=== PATIENT | male | born 1960 | race Caucasian/White ===

== ENCOUNTER 2018-09-11 00:31 | Outpatient (CLI) | payer OTHER, SELFPAY ==
--- NOTE | 2018-09-11 07:01 | MERGEMPI_ITS ---
*[facility]* *[facility]* [address] [place] [address] Myocardial Perfusion Imaging - SPECT Jhon protocol Date of study: 09/11/2018 *PATIENT PRESENTATION* Height: 182.9cm (72in) Blood Pressure: Weight: 102.3kg (225lb) BSA: 2.3m^2 Referring physician: Armen Titus Ordering physician: Pato Calvo Impressions: - Normal study after maximal exercise. - Low risk of cardiac events. Summary: 1. Myocardial perfusion imaging: No myocardial perfusion defects noted. 2. The calculated left ventricular ejection fraction after stress: 55%. LV global systolic function is normal. No left ventricular regional motion abnormality. 3. Stress ECG conclusions: The stress ECG is negative. The sensitivity of this test is limited by significant motion artifact. 4. Stress: There is resting hypertension with an appropriate response to stress. The patient experienced no chest pain during stress. Exercise capacity is above normal for age. 5. Treadmill exercise testing was performed using the Jhon protocol. The patient exercised for 13 min, to protocol stage 4, to a maximal work rate of 14.2mets. Exercise was terminated due to achievement of target heart rate. Indication: R07.9, Appropriate Use Criteria: M (May be appropriate). 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 PT HAS ONE CARDIAC STENT AND A HISTORY OF ATRIAL FIBRILLATION. HE REPORTS CHEST PAINS OVER THIS LAST 6 MONTHS IT ONLY OCCURS AT REST. PT DESCRIBES IT A MUSCULAR SORENESS AND TENDERNESS WITH PALPATION OVER THE CENTER OF HIS CHEST HE STATES IT CAN RADIATE TO THE RIGHT CHEST. LAST EPISODE WAS YESTERDAY IT LASTED ABOUT 1 HOUR. HE CAN REPRODUCE WITH PALPATION. Risk factors: Family history of coronary artery disease. Hypertension. Dyslipidemia. Cholesterol: 221mg/dl. HDL: 52mg/dl. LDL: 57mg/dl. Triglycerides: 52mg/dl. ALLERGIES: NO KNOWN DRUG ALLERGIES. MEDICATIONS: ZYRTEC PRN. ASPIRIN 81 MG DAILY. ATORVASTATIN 80 MG Q HS. PANTOPRAZOLE 20 MG DAILY. LISINOPRIL 10 MG DAILY. HYDROCHLOROTHIAZIDE 12.5 MG DAILY. Imaging Technique: Protocol: Jhon protocol. Acquisition: Gated SPECT; 1 day - rest/stress. The patient was imaged in the supine position. Attenuation correction used. Isotope administration: - Rest. Tc[99m]-sestamibi. Dose: 11.1mCi. Injection time: 09:00 AM. Injection to stress time: 00:45. - Stress. Tc[99m]-sestamibi. Dose: 35mCi. Injection time: 12:30 PM. 1-2 min before end of exercise Baseline ECG: SINUS BRADYCARDIA. HR 54 BPM. Sinus bradycardia. Stress protocol: + +---+ + !Stage !HR !BP (mmHg) ! + +---+ + !Baseline supine !54 !160/100 (120)! + +---+ + !Baseline standing !55 !148/90 (109) ! + +---+ + !Stage I; 1.7mph, 10degrees; 3 min !95 !152/86 (108) ! + +---+ + !Stage II; 2.5mph, 12degrees; 3 min !118!168/92 (117) ! + +---+ + !Stage III; 3.4mph, 14degrees; 3 min!135!182/98 (126) ! + +---+ + !Peak stress !164! ! + +---+ + !Immediate post stress !105!220/70 (120) ! + +---+ + !Recovery; 3 min !94 !180/90 (120) ! + +---+ + !Recovery; 6 min !93 !158/90 (113) ! + +---+ + * Stress results: Maximal heart rate during stress was 164bpm (101% of maximal predicted heart rate). The maximal predicted heart rate was 163bpm. There is resting hypertension with an appropriate response to stress. The rate-pressure product for the peak heart rate and blood pressure was 82678qb Hg/min. The patient experienced no chest pain during stress. Exercise capacity is above normal for age. Stress ECG: TREADMILL PORTION OF STRESS TEST ENDED IN 13 MINUTES & 1 SECOND DUE TO REACHING 100% OF TARGET HEART RATE. NORMAL HEART RATE AND BLOOD PRESSURE RESPONSE TO EXERCISE MAX HR = 164 % OF TARGET = 100 OCCASIONAL PVC. VENTRICULAR COUPLET SEEN X1. APPROXIMATE METS ACHIEVED = 14.16 NO [address]GINA. NO SIGNIFICANT ST SEGMENT CHANGES. ABOVE AVERAGE FUNCTIONAL CAPACITY FOR EXERCISE. The stress ECG is negative. The sensitivity of this test is limited by significant motion artifact. Myocardial perfusion: Imaging information: gated. The image quality was good. Left ventricular size is normal. No myocardial perfusion defects noted. Ventricular Function (Wall Motion): The calculated left ventricular ejection fraction after stress: 55%. LV global systolic function is normal. No left ventricular regional motion abnormality. Study data: Armen Titus MD supervised and was readily available during the procedure. This study was interpreted by [facility]. Study status: Routine. Consent: The risks, benefits, and alternatives to the procedure were explained to the patient and informed consent was obtained. Procedure: Initial setup. A baseline ECG was recorded. Surface ECG leads and manual cuff blood pressure measurements were monitored. Heart sounds: Normal. Lung sounds: Normal. Treadmill exercise testing was performed using the Jhon protocol. The patient exercised for 13 min, to protocol stage 4, to a maximal work rate of 14.2mets. Exercise was terminated due to achievement of target heart rate. Study completion: All catheters inserted during the procedure were removed. The patient tolerated the procedure well and was discharged from the lab. Discharge: The patient left the laboratory in stable condition. Birthdate: Patient birthdate: 1960. Sex: Gender: male. Study date: Study date: 09/11/2018. Study time: 00:01 AM. Signature Documentation: - The imaging portion of this study was interpreted by [employer] Armen Titus MD. - The Stress ECG portion of this study was interpreted by Armen Titus MD. Electronically signed by Armen Titus 09/11/2018 13:58
== END 2018-09-11 00:51 ==
PROVIDERS: PCP Emergency Medicine; Visit Provider Emergency Medicine
DX: I48.91 Unspecified atrial fibrillation (principal); R07.9 Chest pain, unspecified; Z95.5 Presence of coronary angioplasty implant and graft; E78.5 Hyperlipidemia, unspecified; Z02.79 Encounter for issue of other medical certificate; Z82.49 Family history of ischemic heart disease and other diseases of the circulatory system
CPT/HCPCS: 78452; 93017

== ENCOUNTER 2018-09-24 15:09 | Outpatient (CLI) | payer OTHER, SELFPAY ==
--- NOTE | 2018-09-24 15:00 | DI.RAD_ITS ---
SYMPTOMS/DIAGNOSIS: RIGHT KNEE PAIN, M25.561, LEFT KNEE PAIN, M25.562 RIGHT KNEE: There is mild narrowing of the medial tibiofemoral joint space. There is minimal periarticular spurring. No joint effusion is seen. IMPRESSION: Mild degenerative changes. LEFT KNEE: There is mild narrowing of the medial tibiofemoral joint. There is minimal periarticular spurring. No joint effusion is seen. IMPRESSION: Mild degenerative changes.
[2018-09-25 12:57] LABS: PSA, Screening 1.3 ng/ml (0-3.5)
== END 2018-09-24 15:29 ==
PROVIDERS: PCP Emergency Medicine; Visit Provider Emergency Medicine
DX: M25.561 Pain in right knee; M25.562 Pain in left knee; M17.0 Bilateral primary osteoarthritis of knee
CPT/HCPCS: 36415; 73562; 84153

== ENCOUNTER 2019-09-30 22:50 | Outpatient (REF) | payer OTHER, SELFPAY ==
[2019-09-30 20:02] LABS: Anion Gap 8.3 mmol/L (3-11); BUN 17 mg/dL (7-18); CO2 28.7 mmol/L (21.0-32.0); CREATININE 1.23 mg/dL (0.70-1.30); Calcium 8.8 mg/dL (8.5-10.1); Chloride 102 mmol/L (98-107); Glucose 114 mg/dL (74-106); Potassium 3.6 mmol/L (3.5-5.1); Sodium 139 mmol/L (136-145)
== END 2019-09-30 23:10 ==
LOC: LBN 22:50
PROVIDERS: PCP Emergency Medicine; Visit Provider Emergency Medicine
DX: I10 Essential (primary) hypertension (principal)
CPT/HCPCS: 80048

== ENCOUNTER 2020-10-11 01:17 | Outpatient (CLI) | payer OTHER, SELFPAY ==
--- NOTE | 2020-10-11 06:30 | DI.RAD_ITS ---
Exam(s) XR KNEE LT 3V AP,LAT,JASMIN EXAM: XR KNEE LT 3V AP,LAT,JASMIN CLINICAL HISTORY: TRAUMA,FELL, W10.8XXA. TECHNIQUE: 2D digital imaging was performed. COMPARISON: No exams were available for comparison FINDINGS: No evidence of fracture but there does appear to be small amount of increased joint fluid. There is some degenerative narrowing of the medial compartment without obvious osteophytes. Lateral compartme nt appears unremarkable as does the patellofemoral compartment. Bone density is normal. No osseous lesions. IMPRESSION: Degenerative osteoarthritis with narrowing of the medial compartment as seen on the standing view. DATA REPOSITORY: RADIATION DOSE DELIVERED:
--- NOTE | 2020-10-11 08:00 | ETT_ITS ---
APPROVED REPORT Exam: Exercise Treadmill Patient Location: Out-Patient Room/Bed: Stress Nurse: Kyra Willis RN Ordering Provider:EMIL BELL, Contact Number: [phone] BMI: 29.15 Baseline Rhythm: Sinus Bradycardia Indications: CORONARY ARTERY DISEASE Medical History Medical History: CAD, GERD, HTN, HLD Cardiac Medications: Aspirin, Atorvastatin, HCTZ, Lisinopril, Pantoprazole Allergies: No known drug allergies Cardiac Risk Factors: FHX of CAD, CVD, HTN, Hyperlipidemia Previous Cardiac Procedures: PCI w/ JLUIS (2015) Pretest Chest Pain Characteristics: No chest pain Exercise History: Sedentary Physical Disabilities: None. Lung Sounds: Clear to auscultation Heart Sounds: Regular Stress Test Details Test: Exercise stress testing was performed using a Jhon protocol. Rest Stress HR Resting HR Supine: 58 bpm Max Heart Rate (APMHR): 161 bpm Resting HR Standin bpm Target HR (85% APMHR): 136 bpm Max HR Achieved: 179 bpm % of APMHR: 111 Recovery HR: 96 bpm HR response to stress: Normal HR response to stress BP Resting BP Supine: 124/78 mmHg Resting BP Standin/80 mmHg Max BP: 180/72 mmHg Recovery BP: 130/76 mmHg BP response to stress: Normal blood pressure response to stress. ECG Resting ECG: Sinus Bradycardia Ectopy: None Stress ECG: Sinus Tachycardia ST Change: No significant ST segment changes noted Arrhythmia: occasional PVCs, couplet Recovery ECG: Sinus Rhythm Recovery ST Change: No significant ST segment changes noted Recovery Arrhythmia: occasional PACs Clinical Reason for Termination: Fatigue Stress Symptoms: General Fatigue Exercise duration: 13 min38 sec Highest Stage Reached: Stage 5: 5.0 mph at 18% grade. Exercise capacity: 14.61 METs Flowers Treadmill Score: 12 Rate Pressure Product: [id number] Stress ECG Conclusion 1. The resting electrocardiogram was normal 2. The patient exercised on the Jhon protocol and completed a workload of 14.61 METS, reaching stage V 3. The test was stopped due to fatigue 4. Normal heart rate and blood pressure response to exercise. The patient achieved greater than 100% of predicted heart rate for age 5. There was no electrocardiographic evidence of myocardial ischemia 6. There were no significant dysrhythmias Flowers Treadmill Score is 12 which is Low risk. Stress Test Summary STAGE Time (mins) Speed (mph) Grade (%) HR BP SYMPTOMS METS Supine 58 124/78 Standing 63 122/80 1 3 1.7 10 98 124/76 4.6 2 6 2.5 12 115 132/74 7 3 9 3.4 14 129 138/70 10.2 4 12 4.2 16 154 12.9 1 min recovery 143 180/70 3 min recovery 100 154/70 6 min recovery 96 130/76
== END 2020-10-11 01:37 ==
PROVIDERS: PCP Emergency Medicine; Visit Provider Emergency Medicine
DX: I25.118 Atherosclerotic heart disease of native coronary artery with other forms of angina pectoris (principal); W10.8XXA Fall (on) (from) other stairs and steps, initial encounter; M25.562 Pain in left knee; I10 Essential (primary) hypertension; E78.5 Hyperlipidemia, unspecified; Z82.49 Family history of ischemic heart disease and other diseases of the circulatory system
CPT/HCPCS: 73562; 93017

== ENCOUNTER 2020-10-24 14:20 | Emergency (ER) | payer OTHER, SELFPAY ==
[2020-10-24 14:28] VITALS: BP 130/91; PULSE 76; RESP 17; TEMP 36.8; O2SAT 98
--- NOTE | 2020-10-24 14:43 | ED.GENADUL_ITS ---
Discharge Plan Disposition Patient Disposition: HOME Condition: Improving Discharge Details Clinical Impression: Arthritis of knee, left Primary Care Provider: Pato Calvo ED Provider: Ramon Peguero Home Meds and New Rx's Prescriptions: Continued omeprazole 20 mg tablet,delayed release (DR/EC) 20 mg PO DAILY Qty: 90 RF: 3 rosuvastatin 20 mg tablet 20 mg PO DAILY Qty: 90 RF: 3 Slow-Mag 71.5 mg tablet,delayed release (DR/EC) 71.5 mg PO DAILY Qty: 90 RF: 3 potassium chloride 10 mEq tablet extended release 10 meq PO DAILY Qty: 90 RF: 3 Zyrtec 10 MG capsule 1 mg PO DAILY Qty: 90 RF: 4 aspirin 81 MG tablet,chewable 81 mg PO DAILY RF: 0 lisinopril 10 mg tablet 10 mg PO DAILY Qty: 90 RF: 4 hydrochlorothiazide 12.5 mg tablet 12.5 mg PO DAILY Qty: 90 RF: 4 Discharge Instructions Additional Instructions: Please call the orthopedic office at [phone] for an appointment time. I discussed your case with Dr. Roque this evening. May remove Brennen bandage when at home. Elevate leg above the level of the heart to reduce swelling. May apply ice to area to reduce discomfort. May use the provided hydrocodone for breakthrough pain. This contains Tylenol and you should not use additional Tylenol. You may continue the use of Aleve as you have previously. Return to the emergency department for any acute concerns. Medical Decision Making 60-year-old male with worsening left knee pain since fall in September. He has a h istory of bilateral knee osteoarthritis, with primary joint space narrowing of the medial compartments. He previously has been seen by Dr. Roque. Now here with worsening medial pain that is most pronounced when trying to sleep at night, and with the joint in a flexed position. He feels it was worsened by stress test that was performed on October 11. Previous x-rays from October 11: No evidence of fracture but there does appear to be small amount of increased joint fluid. Degenerative osteoarthritis with narrowing of the medial compartment as seen on the standing view. Referred for repeat x-ray which does not show fracture or large effusion. Formal read is pending. I discussed the case with Dr. Roque. He agreed with offering the patient an injection of Marcaine and Depo-Medrol. Patient was consented for risks and benefits of the procedure to which she agreed. He was prepped and draped in standard sterile fashion a medial midpatellar approach was taken and he received 80 mg of Depo-Medrol and 4 mg of Marcaine. We will have him follow-up in orthopedic clinic for recheck. HPI General Mode of arrival: ambulatory . Date/Time Provider Initiated Documentation: 10/24/20 14:20 . Limitations to Documentation: no limitations . Information obtained by: patient . History of Present Illness 60 year old M presents to the emergency department with the chief complaint of Left knee pain, worse, described as moderate and similar to prior episodes, Quality is described as dull and constant, and is localized to the left and lower extremity. Patient reports no radiation. Patient started experiencing this day(s) Rest improves symptom(s), Movement worsens symptoms . Patient notes denies fever/chills and rash. Patient did receive the following treatments prior to arrival, NSAID Related Data Home Medications Medication Instructions Recorded Confirmed Zyrtec 1 mg PO DAILY #90 tab 10/18/12 10/24/20 aspirin 81 mg PO DAILY tab-cap 09/18/17 10/24/20 lisinopril 10 mg tablet 10 mg PO DAILY #90 tab 07/02/20 10/24/20 hydrochlorothiazide 12.5 mg tablet 12.5 mg PO DAILY #90 tab 07/13/20 10/24/20 magnesium chloride 71.5 mg 71.5 mg PO DAILY #90 tab 10/07/20 10/24/20 (magnesium chloride) tablet,delayed release omeprazole 20 mg tablet,delayed 20 mg PO DAILY #90 tab 10/07/20 10/24/20 release potassium chloride 10 mEq 10 meq PO DAILY #90 tab 10/07/20 10/24/20 tablet,extended release rosuvastatin 20 mg tablet 20 mg PO DAILY #90 tab 10/07/20 10/24/20 Previous Rx's Medication Instructions Recorded lisinopril 10 mg tablet 10 mg PO DAILY #90 tab 07/02/20 hydrochlorothiazide 12.5 mg tablet 12.5 mg PO DAILY #90 tab 07/13/20 magnesium chloride 71.5 mg 71.5 mg PO DAILY #90 tab 10/07/20 (magnesium chloride) tablet,delayed release omeprazole 20 mg tablet,delayed 20 mg PO DAILY #90 tab 10/07/20 release potassium chloride 10 mEq 10 meq PO DAILY #90 tab 10/07/20 tablet,extended release rosuvastatin 20 mg tablet 20 mg PO DAILY #90 tab 10/07/20 Allergies Allergy/AdvReac Type Severity Reaction Status Date / Time No Known Allergies Allergy Verified 10/24/20 14:33 General Stated Complaint: Orthopedic MARGI: 4 Review of Systems Narrative: No fever or chills. No erythema. No new injury. 6 systems reviewed and otherwise negative [facility] Medical History Coronary artery disease of [place] artery [place] heart with stable angina pectoris (09/13/16) stenting 2015 Esophageal reflux Fall (on) (from) other stairs and steps, initial encounter Hyperlipidemia Hypertension Surgical History Colonoscopy - MAC 2009-NEG EGD - MAC 08/01 Hemorrhoidectomy (~02/2010) Family History (Updated 10/01/19 @ 15:22 by Mary Lipscomb) Mother Uterine cancer Cancer Breast Father , 67 Essential hypertension Heart disease Hyperlipidemia Brother Essential hypertension Heart disease Brother Essential hypertension Heart disease Brother No problems noted. Maternal Grandfather No problems noted. Paternal Grandfather No problems noted. Maternal Grandmother No problems noted. Paternal Grandmother No problems noted. Daughter No problems noted. Daughter No problems noted. Social History Smoking/Tobacco Use Status: Never Second Hand Exposure: Yes Smoking risk assessment performed?: Yes Alcohol Intake: current Alcohol Intake frequency: a few times a week Drug use: Rarely Substance use type: marijuana Caregiver/Support person: No Household members: spouse Housing: house Communication Needs: None Do you need help understanding health information?: Rarely Pets and animals: No Sexually active: Yes Do you think of yourself as: straight/heterosexual Current gender identity: male What is your relationship status?: How often do you talk on the phone with friends or family?: three or more times per week How often do you get together with friends or relatives?: decline to answer How often do you attend lutheran or mu-ism services?: 4 or more times per year Do you belong to any clubs or organized social groups?: yes Panel score (0-1 are the most socially isolated patients): 4 What type of physical activity do you participate in: decline to answer Duration: decline to answer Frequency: decline to answer Tiffanie/Mandaeism: Mormon Special tiffanie needs: No Seatbelt use: always Helmet use: Yes Helmet use: always Drive intox or ride w/intox certified driver examiner: No Do you feel safe at home: Yes Do you feel safe in your relationship?: Yes Exam Narrative Exam Narrative: GEN: awake, alert, oriented 3. Pleasant, well groomed, interactive. HEAD: Normocephalic, atraumatic EYES: PERRL, EOMI NECK: Full ROM, no FRANCES, no menigismus CHEST/RESP: No respiratory distress EXT: Full ROM, pain with full flexion of left knee. Left knee tender over medial joint line. No laxity appreciated. Motor is rated 5 out of 5, sensation is intact throughout. Palpable DP present. Neuro: Grossly normal neurologic exam, conversant, interactive. Psych: Speech fluent, thoughts congruent, affect normal Course Vital Signs Vital signs: Vital Signs Temperature 36.8 C 10/24/20 14:28 Pulse 76 10/24/20 14:28 Respiratory Rate 17 10/24/20 14:28 Blood Pressure 130/91 H 10/24/20 14:28 Pulse Oximetry 98 10/24/20 14:28 Temperature 36.8 C 10/24/20 14:28 Temperature Source Temporal Artery Scan 10/24/20 14:28 Pulse 76 10/24/20 14:28 Respiratory Rate 17 10/24/20 14:28 Respiratory Effort Short of Breath 10/24/20 14:32 Blood Pressure 130/91 H 10/24/20 14:28 Blood Pressure Position Sitting 10/24/20 14:28 Pulse Oximetry 98 10/24/20 14:28 Pain Level 2 10/24/20 14:28
--- NOTE | 2020-10-24 15:09 | DI.RAD_ITS ---
Exam(s) XR KNEE LT 3V AP,LAT,JASMIN EXAM: XR KNEE LT 3V AP,LAT,JASMIN CLINICAL HISTORY: Medial knee pain TECHNIQUE: COMPARISON: CR XR KNEE LT 3V AP,LAT,JASMIN from 10/11/2020 FINDINGS: Three views were obtained. There is narrowing of the cartilaginous joint space of the medial tibiofe moral joint presumably on a degenerative basis. There is a probable small knee joint effusion. Ther e is no evidence of acute fracture or dislocation. IMPRESSION: RADIATION DOSE DELIVERED: Total DLP
[2020-10-24] MEDS: methylPREDNISolone ACETATE 80 MG/ML VIAL IM (15:24)
--- NOTE | 2020-10-24 16:40 | DI.VRAD_ITS ---
PROCEDURE INFORMATION: Exam: XR Left Knee Exam date and time: 10/24/2020 2:44 PM Age: 60 years old Clinical indication: Left; Patient HX: Medial knee pain TECHNIQUE: Imaging protocol: XR Left knee. Views: 3 views. COMPARISON: CR XR KNEE LT 3V AP,LAT,JASMIN 10/11/2020 8:45 AM FINDINGS: Bones/joints: Small joint effusion. Internal derangement is not excluded. Consider MRI if clinically relevant. Soft tissues: Normal. IMPRESSION: Small joint effusion. Internal derangement is not excluded. Consider MRI if clinically relevant. Dictated and Authenticated by: Chon Gaona MD. Ordering:RADHA Navarro MD
== END 2020-10-24 15:54 | disposition home or self-care (01) ==
PROVIDERS: Emergency Provider Emergency Medicine; PCP Emergency Medicine
DX: M17.12 Unilateral primary osteoarthritis, left knee (principal)
CPT/HCPCS: 20610; 73562; 99284; 99283; J1040

== ENCOUNTER 2020-12-28 14:18 | Outpatient (CLI) | payer OTHER, SELFPAY ==
--- NOTE | 2020-12-28 13:30 | DI.RAD_ITS ---
Exam(s) XR KNEE LT 1V EXAM: XR KNEE LT 1V CLINICAL HISTORY: srthritis of left knee f/u. TECHNIQUE: 2D digital imaging was performed of the left knee. One view was obtained. The Merchant view is obtained. COMPARISON: CR,XR XR KNEE LT 3V AP,LAT,JASMIN from 10/24/2020 CR,XR XR KNEE LT 3V AP,LAT,JASMIN from 10/24/2020 FINDINGS: A single Merchant view is obtained. There is normal appearance of the patellofemoral joint. The bon es appear grossly unremarkable as do the soft tissues. IMPRESSION: DATA REPOSITORY: RADIATION DOSE DELIVERED:
== END 2020-12-28 14:19 | disposition home or self-care (01) ==
LOC: DIORS 14:19
PROVIDERS: PCP Emergency Medicine; Referring Provider Emergency Medicine; Visit Provider Student in an Organized Health Care Education/Training Program
DX: M17.12 Unilateral primary osteoarthritis, left knee (principal)
CPT/HCPCS: 73560

== ENCOUNTER 2021-01-13 22:24 | Outpatient (REF) | payer OTHER, SELFPAY ==
[2021-01-13 22:51] LABS: Calculated LDL 69 mg/dL (<100); Cholesterol 148 mg/dL (<200); HDL Cholesterol 58 mg/dL (40-60); Triglyceride 105 mg/dL (<150)
[2021-01-13 23:06] LABS: Uric Acid 8.5 mg/dL (3.5-7.2)
== END 2021-01-13 22:25 | disposition home or self-care (01) ==
LOC: LBN 22:24
PROVIDERS: PCP Emergency Medicine; Visit Provider Emergency Medicine
DX: I25.118 Atherosclerotic heart disease of native coronary artery with other forms of angina pectoris (principal); M10.9 Gout, unspecified
CPT/HCPCS: 80061; 84550

== ENCOUNTER 2021-01-17 00:36 | Outpatient (CLI) | payer OTHER, SELFPAY ==
--- NOTE | 2021-01-17 08:15 | DI.MRI_ITS ---
Exam(s) MR LOWER JOINT LT WO EXAM: MR LOWER JOINT LT WO CLINICAL HISTORY: recent trauma, persistent pain, internal derangement,tear of medial meniscu TECHNIQUE: Multiplanar multisequence MRI of the knee was performed. COMPARISON: CR,XR XR KNEE LT 3V AP,LAT,JASMIN from 10/24/2020 CR XR KNEE LT 1V from 12/28/2020 CR XR KNEE LT 1V from 12/28/2020 FINDINGS: EFFUSION: Fnwam-wmzxjexd-itqhn joint effusion. There is also a Esquivel cyst in the popliteal fossa whi ch measures 4.7 cm craniocaudal by 0.8 cm AP by 0.7 cm wide. MARROW:There is no evidence of fracture, bone contusion, nor osteochondral defects.. There are no si gnificant osseous lesions. PATELLOFEMORAL COMPARTMENT: The quadriceps tendon is intact. The patellar ligament is intact. There is mild generalized thinning of the retropatellar cartilage and increased signal therein. Smal l fissure noted at the mid facet level. No abnormal subarticular cysts nor edema within the posterio r patella.There is no intraosseous signal to suggest recent patellar dislocation. There are no patell ar retinacular tears. CRUCIATE LIGAMENTS: The anterior cruciate ligament is intact.The posterior cruciate ligament is intac t. MEDIAL COMPARTMENT/MEDIAL MENISCUS: There is full-thickness thinning of the hyaline cartilage over a significant part of the weight-bearing surface of the medial femoral condyle. There is mild tearing of the inner edge of the body of the medial meniscus.. There are no chondral defects, osteochondral defects, subarticular marrow edema, nor osteophytes evid ent. MEDIAL COLLATERAL LIGAMENT: Sprain signal LATERAL COMPARTMENT/LATERAL MENISCUS: There is no evidence of lateral meniscal tear.There are no anthony dral defects, osteochondral defects, subarticular marrow edema, nor osteophytes evident. ILIOTIBIAL BAND: Intact LATERAL COLLATERAL LIGAMENT COMPLEX: The fibular collateral ligament is intact. The biceps femoris t endon is intact.Popliteus muscle and tendon are intact. IMPRESSION: 1. The main findings are in the medial compartment where there is significant thinning of the cartila ge over significant aspect of the weight-bearing surface of the medial femoral condyle and there is m ild tearing of the inner edge of the body of the medial meniscus. No osteochondral defects. 2. Minimal degenerative changes in the lateral compartment and no evidence of lateral meniscal tear. 3. There are no cruciate ligament tears. 4. There are no collateral ligament tears. 5. There is a small-moderate size joint effusion and there is a Esquivel cyst in the popliteal fossa me asuring 4.7 cm craniocaudal length. DATA REPOSITORY:
== END 2021-01-17 00:56 ==
PROVIDERS: PCP Emergency Medicine; Visit Provider Student in an Organized Health Care Education/Training Program
DX: M25.562 Pain in left knee (principal); M25.462 Effusion, left knee; M71.22 Synovial cyst of popliteal space [Baker], left knee; S83.242A Other tear of medial meniscus, current injury, left knee, initial encounter; S83.412A Sprain of medial collateral ligament of left knee, initial encounter; M17.12 Unilateral primary osteoarthritis, left knee
CPT/HCPCS: 73721

== ENCOUNTER 2021-03-30 03:39 | Outpatient (CLI) | payer OTHER, SELFPAY ==
[2021-03-31 01:18] LABS: COVID-19 RT-PCR UVMMC Result Negative (Negative)
== END 2021-03-30 03:40 | disposition home or self-care (01) ==
LOC: LBO 03:39
PROVIDERS: PCP Emergency Medicine; Visit Provider Emergency Medicine
DX: Z20.822 Contact with and (suspected) exposure to COVID-19 (principal)
CPT/HCPCS: U0003

== ENCOUNTER 2021-04-28 03:13 | Outpatient (CLI) | payer OTHER, SELFPAY ==
[2021-04-28 11:17] LABS: Abs Immature Grans 0.02 10^3/uL (0.0-0.06); Absolute Basophil Count 0.02 10^3/uL (0.0-0.2); Absolute Eosinophil Count 0.13 10^3/uL (0.0-0.7); Absolute Lymphocyte Count 1.35 10^3/uL (1.2-3.4); Absolute Monocyte Count 0.57 10^3/uL (0.1-0.8); Absolute Neutrophil Count 3.49 10^3/uL (1.2-6.7); Basophils % 0.4; Eosinophils % 2.3; HCT 41.8 % (40.0-50.0); HGB 13.8 g/dL (13.5-17.5); Immature Grans % 0.4; Lymphocytes % 24.2; MCH 27.9 pg (27.0-33.0); MCV 84.6 fL (80-95); MPV 10.1 fL (8.0-11.0); Monocytes % 10.2; Neutrophils % 62.5; Nucleated RBC 0 %; Platelet Count 213 10^3/uL (130-400); RBC 4.94 10^6/uL (4.36-5.78); RDW 13.2 % (11.8-14.1); RDW-SD 40.3 fL; WBC 5.58 10^3/uL (4.4-10.8)
[2021-04-28 12:37] LABS: ALT 45 U/L (16-63); AST 27 U/L (15-37); Albumin 3.8 g/dL (3.4-5.0); Alkaline Phosphatase 88 U/L (46-116); Anion Gap 7.5 mmol/L (3-11); BUN 19 mg/dL (7-18); Bilirubin, Total 0.4 mg/dL (0.2-1.0); C-Reactive Protein 0.28 mg/dL (0.0-0.3); CO2 28.5 mmol/L (21.0-32.0); CREATININE 1.1 mg/dL (0.70-1.30); Calcium 8.5 mg/dL (8.5-10.1); Chloride 103 mmol/L (98-107); Glucose 95 mg/dL (74-106); Potassium 4.4 mmol/L (3.5-5.1); Sodium 139 mmol/L (136-145); Total Protein 6.9 g/dL (6.4-8.2); Uric Acid 3.9 mg/dL (3.5-7.2)
[2021-04-28 20:59] LABS: Rheumatoid Factor <8.6 IU/mL (<12.0)
== END 2021-04-28 03:14 | disposition home or self-care (01) ==
LOC: LBO 03:13
PROVIDERS: PCP Family Medicine; Visit Provider Emergency Medicine
DX: M25.50 Pain in unspecified joint (principal); M10.9 Gout, unspecified
CPT/HCPCS: 36415; 80053; 84550; 85025; 86140; 86431

== ENCOUNTER 2021-06-08 02:22 | Outpatient (CLI) | payer OTHER, SELFPAY ==
[2021-06-08 11:35] LABS: Source Nasal/Nares
[2021-06-08 22:43] LABS: COVID-19 PCR Negative (Negative)
== END 2021-06-08 02:23 | disposition home or self-care (01) ==
PROVIDERS: PCP Family Medicine; Visit Provider Surgery
DX: Z01.818 Encounter for other preprocedural examination (principal); Z20.822 Contact with and (suspected) exposure to COVID-19
CPT/HCPCS: 87635

== ENCOUNTER 2021-06-10 06:18 | Day surgery (SDC) | payer OTHER, SELFPAY ==
--- NOTE | 2021-06-09 09:35 | W.COLOREPORT ---
Colonoscopy Report Date of procedure: 06/10/21 Pre-op diagnosis general: CRC screening Post-op diagnosis procedure note: other (minor diverticula of the sigmoid colon. Internal and external hemorrhoid) Surgeon: Lili Giordano Anesthesia Type: General:No Airway Estimated blood loss (mL): 0 Pathology: none sent Complications: None Disposition: same day Prep: Miralax/Dulcolax Retraction Time: 9 mins Procedure Description: After informed consent was obtained the patient was taken to the procedure room and placed in a left decubitous position. Monitors were applied and a time out was done. The patients name, date of , procedure, allergies to medications and metal in their body was reviewed. The patient was then sedated. Once sedated and comfortable a rectal exam was done. External exam: Moderate external hemorrhoids with no acute inflammation internal exam revealed a normal sphincter tone and no palpable masses. Postoperative changes from a previous stapling. The scope was then introduced and retrofelexed. pt has had a prior hemorrhoid stapling- he still has some residual internal hemorrhoidal Dx. The scope was then advanced to the cecum w/out difficulty. The TI and appendiceal orifice were identified. The prep was BBPS 3 in the all segments for a total of 9. the scope was then slowly retracted over 9 minutes back into the rectum. He has minor diverticular disease confined to the sigmoid colon, and with no signs of active bleeding or infection. No polyps are visualized today. The scope was removed and the patient was woken up and taken back to Same day surgery in stable condition. The patient tolerated the procedure well and there were no immediate complications. Follow up: The patient should follow up in 10 years unless they develop changes in bowel habits or other new gastrointestinal complaints.
--- NOTE | 2021-06-09 09:36 | PDOC.DSDIS_ITS ---
Discharge Plan Disposition Patient Disposition: HOME Condition: Good Discharge Details Reason For Visit: colon scope Attending Provider: Lili Giordano Primary Care Provider: Adela Vincent Home Meds and New Rx's Prescriptions: Continued omeprazole 20 mg tablet,delayed release (DR/EC) 20 mg PO DAILY Qty: 90 3RF rosuvastatin 20 mg tablet 20 mg PO DAILY Qty: 90 3RF ptjxoep-kjcd-jajlj-oreg-capryl 100 mg-150 mg- 50 mg-150 mg capsule 1 cap PO DAILY 0RF allopurinol 100 mg tablet 100 mg PO DAILY Qty: 90 4RF Hold Instructions: Home Medication placed on hold at Doctor's office amlodipine 5 mg tablet 5 mg PO DAILY Qty: 90 3RF colchicine [Mitigare] 0.6 mg capsule 0.6 mg PO BID Qty: 60 2RF triamcinolone acetonide 0.1 % ointment 1 applic topical DAILY Qty: 80 0RF prednisone 20 mg tablet 20 mg PO DAILY Qty: 14 0RF Rx Instructions: take two tabs daily for 3 days, then 1 1/2 tabs daily for 3 days, then one tab daily for 3 days. Take always with food. Zyrtec 10 MG capsule 1 mg PO DAILY Qty: 90 4RF aspirin 81 MG tablet,chewable 81 mg PO DAILY 0RF lisinopril 10 mg tablet 10 mg PO DAILY Qty: 90 4RF allopurinol 300 mg tablet 300 mg PO DAILY Qty: 90 3RF Hold Instructions: Home Medication placed on hold at Doctor's office Discontinued polyethylene glycol 3350 17 gram/dose powder 238 g PO ONCE Qty: 238 0RF Rx Instructions: take per colonoscopy instructions bisacodyl [Dulcolax (bisacodyl)] 5 mg tablet,delayed release (DR/EC) 5 mg PO ONCE Qty: 4 0RF Rx Instructions: take per colonoscopy instructions Discharge Instructions Additional Instructions: DSU Colonoscopy Post- Op Instructions Instructions for Everyone who is given Anesthesia: For your safety, please do the following for the next twenty-four (24) hours: *Do Not operate a motor vehicle (car, truck, motorcycle, etc.) *Do Not drink alcoholic beverages or use any recreational drugs for the first 24 hours or while taking pain medications. The medications in your body may have a reaction that can be dangerous. *Do Not make any important decisions or sign any important papers. Findings:minor diverticula external hemorrhoids Follow up:10 yrs 1. No lifting over 20 pounds or strenuous activity for the first 24 hours after your procedure. After 24 hours there are no restrictions on your activity but you may feel fatigued for a few days. 2. After you arrive home you may have a light meal and return to your normal diet as you can tolerate it without feeling sick to your stomach. 3. You may have a bloated, gaseous feeling in your belly (abdomen) after a colonoscopy. Passing gas and belching will help. Walking or lying down on your left side with your knees flexed may relieve the discomfort. Call the office at [phone] (Office) or [phone] (Hospital) right away if you notice any of the following: a.Vomiting of blood or ?coffee ground stools?. b.Rectal bleeding 1Tbsp, blood clots or continuous bleeding. c.Severe belly (abdominal) pain. d.A hard distended belly (abdomen) and an inability to pass gas. 4. Please don?t expect to have a normal BM (bowel movement) for 2-3 days after your procedure. 5. If there are questions regarding the findings of your procedure, please contact your doctor 6. If you are unable to contact your doctor with a problem, contact the hospital at [phone]. 7. Continue all your regular medications unless directed otherwise. I understand the above instructions and have no questions. Signature of Patient or Adult Escort Name of Responsible Adult Escort Signature of Nurse Date/Time Activity:: see above Diet:: see above Discharge Orders Discharge Orders: Discharge Order (Routine); Ordered 06/09/21 Ordered By: Lili Giordano
[2021-06-10 06:34] VITALS: BP 148/90; PULSE 79; RESP 16; TEMP 36.5; O2SAT 96
[2021-06-10] MEDS: Lactated Ringers 1,000 ML 80 ML IV (06:45)
--- NOTE | 2021-06-10 07:08 | ANES.PREOP_ITS ---
General Info Date of Service Date Performed: 06/10/21 Height: 6 ft Weight: 103 kg Body Mass Index (BMI): 30.8 Surgical Procedure: Operation Date: 06/10/21 07:35 Proposed Procedure Side Surgeon juan josé Giordano, Meds Allergies and Home Medications Allergies Allergy/AdvReac Type Severity Reaction Status Date / Time No Known Allergies Allergy Verified 06/10/21 06:24 Home Medication Medication Instructions Recorded cetirizine 10 mg capsule (Zyrtec) 1 mg PO DAILY #90 tab 10/18/12 aspirin 81 mg chewable tablet 81 mg PO DAILY tab-cap 09/18/17 lisinopril 10 mg tablet 10 mg PO DAILY #90 tab 07/02/20 omeprazole 20 mg tablet,delayed 20 mg PO DAILY #90 tab 10/07/20 release rosuvastatin 20 mg tablet 20 mg PO DAILY #90 tab 10/07/20 allopurinol 300 mg tablet 300 mg PO DAILY #90 tab 01/18/21 allopurinol 100 mg tablet 100 mg PO DAILY #90 tab 04/14/21 colchicine 0.6 mg capsule 0.6 mg PO BID #60 cap 05/10/21 (Mitigare) prednisone 20 mg tablet 20 mg PO DAILY #14 tab 05/10/21 triamcinolone acetonide 0.1 % 1 applic TOPICAL DAILY #80 g 05/10/21 topical ointment bisacodyl 5 mg tablet,delayed 5 mg PO ONCE #4 tab 06/03/21 release (Dulcolax (bisacodyl)) polyethylene glycol 3350 17 238 g PO ONCE #238 g 06/03/21 gram/dose oral powder tumeric 100 mg-dustin 150 mg-olive 1 cap PO DAILY 06/03/21 50 mg-oreg 150 mg-caprylate capsule amlodipine 5 mg tablet 5 mg PO DAILY #90 tab 06/06/21 Current Visit Medications: Current Medications Generic Name Dose Route Start Last Admin Trade Name Freq PRN Reason Stop Dose Admin Hyoscyamine Sulfate 0.125 mg 06/09/21 09:34 Hyoscyamine 0.125 Mg Sl/Oral/Chew SL 06/10/21 16:00 DIRECTED PRN Ringer's Solution 1,000 mls @ 80 mls/hr 06/10/21 06:00 06/10/21 06:45 IV 06/23/21 23:59 80 mls/hr INFUSION TARA Administration IV Miscellaneous Supplies 1 each 06/10/21 06:00 Iv Access IV 06/23/21 23:59 DIRECTED TARA Ondansetron HCl 4 mg 06/09/21 09:34 Ondansetron 4 Mg/2 Ml Vial IVP 06/10/21 16:00 Q4H PRN PRN Nausea / Vomiting Sodium Chloride 0 ml 06/10/21 06:00 Normal Saline Flush 10 Ml Syr IV 06/23/21 23:59 PRN PRN Sodium Chloride 0 ml 06/10/21 06:00 Normal Saline 10 Ml Vial IJ 06/23/21 23:59 DIRECTED PRN Sterile Water 0 ml 06/10/21 06:00 Water,Injection,Sterile 10 Ml Vial IJ 06/23/21 23:59 DIRECTED PRN PFSH Active Problems Active Problems: Problem Status Onset Code Rotator cuff syndrome M75.100 Rhinitis J31.0 History of hemorrhoidectomy Z98.890 History of esophagogastroduodenoscopy Z98.890 Hemorrhoids K64.9 Essential hypertension 02/11/13 I10 Esophageal reflux K21.9 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 09/13/16 I25.118 Bilateral knee pain M25.561, M25.562 Fall (on) (from) other stairs and steps, initial encounter W10.8XXA Tear of medial meniscus of left knee, current S83.242A 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 is cleared to no longer see him and to see them on a PRN basis. Hemorrhoidectomy (~02/2010) History of thumb surgery Tobacco Smoking/Tobacco Use Status: Never Passive smoking exposure: Yes Second hand exposure: Yes Alcohol Alcohol Intake: current Alcohol intake frequency: 0-2 drinks per day Alcohol type: hard liquor Substance Use Substance use: Rarely Substance use type: marijuana Vital Signs and Lab Results Vital Signs Most Recent Vital Signs in EMR: Most Recent Vital Signs Temp Pulse Resp BP Pulse Ox 36.5 C 79 16 148/90 H 96 06/10/21 06:34 06/10/21 06:34 06/10/21 06:34 06/10/21 06:34 06/10/21 06:34 Lab Results Blood Type / Crossmatch: No Data to Display Complete Blood Count: No Data to Display Complete Metabolic Panel: No Data to Display Liver Function Panel: No Data to Display Coagulation Panel: No Data to Display Cardiac Panel: No Data to Display Arterial Blood Gas: No Data to Display Venous Blood Gas: No Data to Display Pancreas Panel: No Data to Display Thyroid Panel: No Data to Display Infectious Disease: Coronavirus (COVID-19)(PCR) Negative (Negative) 06/08/21 09:03 06/08/21 Coronavirus 2019 Source Nasal/Nares 06/08/21 09:03 06/08/21 Blood Cultures: No Data to Display Toxicology Panel: No Data to Display Anesthesia Assessment and Plan Anesthesia History Personal History: No History of Anesthesia Complications Family History: No Family History of Anesthesia Complications Exercise Tolerance Exercise Tolerance: Metabolic Equivalents>4 Pertinent Negatives Pertinent Negatives: No Symptoms of GERD (Well controlled with medication ), No Major Cardiovascular Symptoms or Complaints, No Major Pulmonary Symptoms or Complaints and No History of CVA/TIA Cardiac & Pulmonary Exam Cardiac Exam: Normal S1/S2 Heart Sounds Pulmonary Exam: Clear Bilateral Breath Sounds Implantable Cardiac Device Does patient have a Pacemaker or an ICD?: No Airway Exam Known Difficult Airway: No Mallampati Class: 1 Mouth Opening: Normal (> 3cm) Thyromental Distance: Greater than 3 cm Facial Hair: Full [place] Neck Range of Motion: Full ROM Neck Circumference: Normal Teeth Condition: Normal Dentition ASA Classification ASA Score: ASA 2 Emergency Case?: No NPO Status NPO Status: NPO Clears >2 hours, Solids >8 hours Anesthesia Plan Resuscitation Status: Full Code Anesthesia Technique: General Anesthesia Airway Planned: Natural Airway Monitors Used: Standard Monitors
[2021-06-10 07:10] VITALS: BMI 30.8
[2021-06-10 08:19] VITALS: BP 107/73; PULSE 77; RESP 20; TEMP 36.6; O2SAT 95
--- NOTE | 2021-06-10 08:21 | W.ANESPOSTOP ---
Postoperative Evaluation Date, Time and Location Date Performed: 06/10/21 Time Performed: 08:21 Patient Location: Day Surgery Unit Vital Signs Most Recent Imported Vital Signs: Most Recent Vital Signs Temp Pulse Resp BP Pulse Ox 36.5 C 79 16 148/90 H 96 06/10/21 06:34 06/10/21 06:34 06/10/21 06:34 06/10/21 06:34 06/10/21 06:34 Most Recent Manually Entered Vital Signs: Adult Blood Pressure: 107/73 Heart Rate: 77 Respirations: 12 Oxygen Saturation (%): 95 Temperature (C): 36.3 C Pain Score (0-10 Scale): 0 Pain Score Most Recent Pain Score: Most Recent Pain Score Pain Level 0 06/10/21 06:34 Assessment Mental Status: Awake (Alert & Oriented to Patient Baseline) Airway and Respiratory Function: Patent airway with normal (patient baseline) respiratory exam Cardiovascular Function: Hemodynamically Stable Hydration Status: Adequately Hydrated Nausea & Vomiting: No Nausea or Vomiting Pain: Pt. Denies Any Pain Peripheral Nerve Block: Patient did not receive a nerve block
[2021-06-10 08:22] VITALS: BP 107/73; PULSE 77; RESP 12; TEMPC 36.3; O2SAT 95
[2021-06-10 08:57] VITALS: BP 121/89; PULSE 68; RESP 16; TEMP 36.3; O2SAT 95
== END 2021-06-10 09:30 | disposition home or self-care (01) ==
LOC: SUR 06:18
PROVIDERS: PCP Family Medicine; Visit Provider Surgery
PROC: 0DJD8ZZ Inspection of Lower Intestinal Tract, Via Natural or Artificial Opening Endoscopic (ICD-10-PCS; CPT 45378; principal; 2021-06-10 07:30)
DX: Z12.11 Encounter for screening for malignant neoplasm of colon (principal); K57.30 Diverticulosis of large intestine without perforation or abscess without bleeding; K64.4 Residual hemorrhoidal skin tags; K64.8 Other hemorrhoids
CPT/HCPCS: 45378; J2001

== ENCOUNTER 2022-01-19 03:50 | Outpatient (CLI) | payer OTHER, SELFPAY ==
[2022-01-19 22:31] LABS: PSA, Screening 0.7 ng/mL (<=4.5)
[2022-01-20 09:21] LABS: Hepatitis C Ab w Rflx HCV PCR Negative (Negative)
[2022-01-20 09:29] LABS: HIV-1/2 Ag & Ab Screen Negative (Negative)
== END 2022-01-19 03:51 | disposition home or self-care (01) ==
PROVIDERS: PCP Family Medicine; Visit Provider Family Medicine
DX: Z12.5 Encounter for screening for malignant neoplasm of prostate (principal); Z11.4 Encounter for screening for human immunodeficiency virus [HIV]; Z00.00 Encounter for general adult medical examination without abnormal findings; Z11.59 Encounter for screening for other viral diseases
CPT/HCPCS: 36415; 84153; 86803; 87389

== ENCOUNTER 2022-09-13 02:46 | Outpatient (CLI) | payer OTHER, SELFPAY ==
[2022-09-13 15:31] LABS: ALT 38 U/L (16-63); AST 23 U/L (15-37); Albumin 3.4 g/dL (3.4-5.0); Alkaline Phosphatase 110 U/L (46-116); Anion Gap 8.4 mmol/L (3-11); BUN 15 mg/dL (7-18); Bilirubin, Total 0.4 mg/dL (0.2-1.0); CO2 26.6 mmol/L (21.0-32.0); CREATININE 1.3 mg/dL (0.70-1.30); Calcium 8.1 mg/dL (8.5-10.1); Chloride 103 mmol/L (98-107); Glucose 113 mg/dL (74-106); Potassium 3.6 mmol/L (3.5-5.1); Sodium 138 mmol/L (136-145); Total Protein 6.8 g/dL (6.4-8.2); Uric Acid 3.5 mg/dL (3.5-7.2)
== END 2022-09-13 02:47 | disposition home or self-care (01) ==
LOC: LBO 02:46
PROVIDERS: PCP Family Medicine; Visit Provider Family Medicine
DX: Z00.00 Encounter for general adult medical examination without abnormal findings (principal); I10 Essential (primary) hypertension; M10.9 Gout, unspecified
CPT/HCPCS: 36415; 80053; 84550

== ENCOUNTER 2023-04-25 16:42 | Outpatient (CLI) | payer OTHER, SELFPAY ==
--- NOTE | 2023-04-25 14:58 | DI.RAD_ITS ---
Exam(s) XR KNEE LT 2V AP,LAT EXAM: XR KNEE LT 2V AP,LAT CLINICAL HISTORY: LEFT KNEE PAIN. TECHNIQUE: 2D digital imaging was performed of the left knee. Two images were obtained. AP and lat eral views were obtained. COMPARISON: CR,XR XR KNEE LT 3V AP,LAT,JASMIN from 10/24/2020 FINDINGS: BONES: No acute fracture is present. No bony destructive lesion is seen. JOINTS: There is mild narrowing and spurring in the medial femoral tibial joint. There is a small piter int effusion. There is spurring of the posterior patella. No loose body. SOFT TISSUE: Normal. IMPRESSION: Mild degenerative changes of the left knee. DATA REPOSITORY: RADIATION DOSE DELIVERED:
== END 2023-04-25 16:43 | disposition home or self-care (01) ==
LOC: DIORS 16:44
PROVIDERS: PCP Family Medicine; Visit Provider Student in an Organized Health Care Education/Training Program
DX: M94.262 Chondromalacia, left knee (principal); M17.12 Unilateral primary osteoarthritis, left knee
CPT/HCPCS: 73560

== ENCOUNTER 2024-01-03 00:50 | Outpatient (CLI) | payer OTHER, SELFPAY ==
[2024-01-03] MEDS: Regadenoson 0.4 MG/5 ML SYR IVP (11:08)
--- NOTE | 2024-01-03 13:06 | DI.NM_ITS ---
APPROVED REPORT Exam: Pharmacologic Patient Location: Out-Patient Room/Bed: Stress Nurse: Stephanie Ross RN Ordering Provider:DARLING RUIZ MD, Contact Number: [phone] BMI: 32.63 Baseline Rhythm: Sinus Bradycardia Indications: CAD Medical History Medical History: DJD, CAD of [place] arteryof [place] heart with stable angina, obesity, gout, HLD, HTN , bilateral knee pain Cardiac Medications: Amlodipine, aspirin, celecoxib, febuxostat, lisinopril, loratadine, omeprazole, prednisone, rosuvastatin Allergies: Allopurinol Cardiac Risk Factors: HTN, HLD, CVD, obesity Previous Cardiac Procedures: H/O heart artery stent (LAD) 2015 Pretest Chest Pain Characteristics: None Exercise History: Indeterminate Physical Disabilities: L knee Lung Sounds: Clear to auscultation Heart Sounds: Regular Stress Test Details Test: Pharmacologic stress testing performed using 0.4 mg of regadenoson per 5 mL given IV over 10 s econds. Reason for pharmacologic stress test: physical limitation. Nuclear Acquisition: Rest Tc-99m/Stress Tc-99m 1 day Rest Isotope: Tc-99m Sestamibi. Dose: 12.0 Date: 01/03/2024 Injection Time: 0915 Stress Isotope: Tc-99m Sestamibi. Dose: 36.0 Date: 01/03/2024 Injection Time: 1056 HR Resting HR Supine: 56 bpm Max Heart Rate (APMHR): 157.596969 bpm Target HR (85% APMHR): 133.752545 bpm Max HR Achieved: 86 bpm % of APMHR: 54.78 Recovery HR: 74 bpm BP Resting BP Supine: 148/92 mmHg Max BP: 152/90 mmHg Recovery BP: 152/90 mmHg ECG Resting ECG: Sinus Bradycardia Ectopy: None Stress ECG: Sinus Rhythm ST Change: Nondiagnostic low heart rate Arrhythmia: None Recovery ECG: Sinus Rhythm Recovery ST Change: Nondiagnostic low heart rate Recovery Arrhythmia: None Clinical Stress Symptoms: None Angina Score: None Rate Pressure Product: 45294 Stress ECG Conclusion 1. Resting electrocardiogram was normal 2. Patient underwent testing using pharmacologic stress with regadenoson 3. Peak heart rate achieved was 55% of maximal predicted for age 4. The electrocardiographic portion of the test was nondiagnostic 5. See MPI report Stress Test Summary STAGE HR BP SpO2 Symptoms NOTES Supine 56 148/92 1 min post Lexiscan injection 70 140/90 3 min post Lexiscan injection 79 142/88 6 min post Lexiscan injection 74 152/90 MPI Conclusion Myocardial perfusion is normal. There is no ischemia or evidence of prior infarction Ejection fraction is 55% with normal wall motion Radiologist Interpretation Radiologist agrees with Software Analyst's Interpretation. Radiologist Interpretation by: Victor Manuel Garces MD Interpretation Date/Time: 01/03/2024 17:44:33
== END 2024-01-03 01:10 ==
LOC: DI 00:51
PROVIDERS: PCP Family Medicine; Visit Provider Family Medicine
DX: I25.118 Atherosclerotic heart disease of native coronary artery with other forms of angina pectoris (principal)
CPT/HCPCS: 78452; 93017; J2785

== ENCOUNTER 2024-02-04 15:35 | Outpatient (CLI) | payer OTHER, SELFPAY ==
--- NOTE | 2024-02-04 13:15 | DI.RAD_ITS ---
Exam(s) XR STANDING ALIGNMENT EXAM: XR STANDING ALIGNMENT CLINICAL HISTORY: LEFT KNEE PAIN. TECHNIQUE: 2D digital imaging was performed. Four images were obtained. COMPARISON: CR XR knee LT 3V AP,lat,jasmin from 09/24/2018 CR XR KNEE LT 3V AP,LAT,JASMIN from 10/11/2020 CR,XR XR KNEE LT 3V AP,LAT,JASMIN from 10/24/2020 CR XR KNEE LT 1V from 12/28/2020 CR XR KNEE LT 2V AP,LAT from 04/25/2023 FINDINGS: BONES: The hips are well maintained. The right knee is grossly unremarkable. There is mild narrowin g of the medial femoral tibial joint of the left knee. The ankles are well maintained.There is no si gnificant leg length discrepancy. SOFT TISSUE: Normal. IMPRESSION: Mild narrowing of the medial joint compartment of the left knee. Unremarkable right knee. DATA REPOSITORY: RADIATION DOSE DELIVERED:
== END 2024-02-04 15:36 | disposition home or self-care (01) ==
LOC: DIORS 15:35
PROVIDERS: PCP Family Medicine; Visit Provider Student in an Organized Health Care Education/Training Program
DX: M94.262 Chondromalacia, left knee (principal)
CPT/HCPCS: 77073

== ENCOUNTER 2024-02-26 02:28 | Outpatient (CLI) | payer OTHER, SELFPAY ==
[2024-02-26 08:04] LABS: HCT 46.2 % (40.0-50.0); HGB 15.3 g/dL (13.5-17.5); MCH 28.6 pg (27.0-33.0); MCHC 33.1 % (32.0-36.0); MCV 86 fL (80-95); MPV 10.5 fL (8.0-11.0); Platelet Count 192 10^3/uL (130-400); RBC 5.35 10^6/uL (4.36-5.78); RDW 12.4 % (11.8-14.1); WBC 6.28 10^3/uL (4.4-10.8)
[2024-02-26 08:33] LABS: BUN 15 mg/dL (7-18); CREATININE 1.2 mg/dL (0.70-1.30); Calcium 8.6 mg/dL (8.5-10.1); Chloride 106 mmol/L (98-107); Estimated GFR 67.95 (mL/min/1.73m2); Glucose 100 mg/dL (74-106); Potassium 4.1 mmol/L (3.5-5.1); Sodium 144 mmol/L (136-145)
[2024-02-26 21:57] LABS: PSA, Screening 0.7 ng/mL (<=4.5)
== END 2024-02-26 02:29 | disposition home or self-care (01) ==
PROVIDERS: Student in an Organized Health Care Education/Training Program; PCP Family Medicine; Visit Provider Family Medicine
DX: M94.262 Chondromalacia, left knee (principal); Z01.818 Encounter for other preprocedural examination; Z12.5 Encounter for screening for malignant neoplasm of prostate
CPT/HCPCS: 36415; 80048; 84153; 85027

== ENCOUNTER 2024-03-04 06:01 | Day surgery (SDC) | payer OTHER, SELFPAY ==
--- NOTE | 2024-03-03 18:02 | W.ANESPRE ---
General Info Date of Service Date Performed: 03/04/24 Height: 5 ft 10.5 in Weight: 102.965 kg Body Mass Index (BMI): 32.1 Surgical Procedure: Operation Date: 03/04/24 07:40 Proposed Procedure Side Surgeon p Knee Total Arthroplasty Left Dario Roque MD Meds Allergies and Home Medications Allergies Allergy/AdvReac Type Severity Reaction Status Date / Time allopurinol AdvReac Intermediate Skin Rash Verified 03/04/24 06:21 Home Medication ?Medication ?Instructions ?Recorded loratadine 10 mg tablet 10 mg PO DAILY 02/06/23 omeprazole 20 mg tablet,delayed 20 mg PO DAILY #90 tabs 07/30/23 release tramadol 50 mg tablet 50 mg PO Q8H PRN pain #60 tabs 02/04/24 amlodipine 5 mg tablet 5 mg PO HS 03/04/24 febuxostat 40 mg tablet 40 mg PO HS 03/04/24 lisinopril 30 mg tablet 30 mg PO HS 03/04/24 rosuvastatin 20 mg tablet 20 mg PO HS 03/04/24 Current Visit Medications: Current Medications Generic Name Dose Route Start Last Admin Trade Name Freq PRN Reason Stop Dose Admin Acetaminophen 1,000 mg 03/04/24 06:00 Acetaminophen 500 Mg Tab PO 03/04/24 23:59 PREOP TARA Celecoxib 400 mg 03/04/24 06:00 Celecoxib 200 Mg Cap PO 03/04/24 23:59 PREOP TARA Gabapentin 300 mg 03/04/24 06:00 Gabapentin 300 Mg Cap PO 03/04/24 23:59 PREOP TARA Ringer's Solution 1,000 mls @ 80 mls/hr 03/04/24 06:00 IV 03/04/24 23:59 INFUSION TARA Cefazolin Sodium/Dextrose 2 gm in 50 mls @ 100 mls/hr 03/04/24 06:00 Ancef Duplex IVPB 03/04/24 23:59 PREOP TARA Ringer's Solution 500 mls @ 80 mls/hr 03/04/24 06:00 IV 03/04/24 23:59 INFUSION TARA Tranexamic Acid 1,000 mg/ 110 mls @ 660 mls/hr 03/04/24 06:00 Sodium Chloride IVPB 03/04/24 23:59 PREOP TARA IV Miscellaneous Supplies 1 each 03/04/24 06:00 Iv Access IV 03/04/24 23:59 DIRECTED TARA Sodium Chloride 0 ml 03/04/24 06:00 Normal Saline Flush 10 Ml Syr IV 03/04/24 23:59 PRN PRN Sodium Chloride 0 ml 03/04/24 06:00 Normal Saline 10 Ml Vial IJ 03/04/24 23:59 DIRECTED PRN Sterile Water 0 ml 03/04/24 06:00 Water,Injection,Sterile 10 Ml Vial IJ 03/04/24 23:59 DIRECTED PRN PFSH Active Problems Active Problems: Problem Status Onset Code Localized osteoarthritis of left knee Acute M17.12 Ear fullness Acute H93.8X9 Right otitis media Acute H66.91 Chondromalacia, left knee Chronic M94.262 Obesity with serious comorbidity Chronic E66.9 Gout Chronic M10.9 Hyperlipidemia Chronic E78.5 Bilateral knee pain Acute M25.561, M25.562 Esophageal reflux Chronic K21.9 Essential hypertension Chronic 02/11/13 I10 Rotator cuff syndrome Acute M75.100 Medical History Medical History 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 no polyps repeat 2031 Coronary artery disease of [place] artery of [place] heart with stable angina pectoris (09/13/16) [place] [facility] [place] [facility] [place] is cleared to no longer see him and to see them on a PRN basis. DOT stress test q 2y Hemorrhoids external and internal [place] [facility] [place] Surgical History History of thumb surgery [place] [facility] [place] [facility] [place] he is cleared to no longer see him and to see them on a PRN basis. History of esophagogastroduodenoscopy History of hemorrhoidectomy Tobacco Smoking/Tobacco Use Status: Never Passive smoking exposure: No Second hand exposure: Yes Alcohol Alcohol Intake: current Alcohol intake frequency: a few times a week Alcohol type: beer, wine and hard liquor Substance Use Substance use: Rarely Substance use type: marijuana Vital Signs and Lab Results Vital Signs Most Recent Vital Signs in EMR: Temp Pulse Resp BP Pulse Ox 36.5 C 73 16 160/97 H 98 03/04/24 06:25 03/04/24 06:25 03/04/24 06:25 03/04/24 06:25 03/04/24 06:25 Lab Results Blood Type / Crossmatch: No Data to Display Complete Blood Count: White Blood Count 6.28 10^3/uL (4.4-10.8) 02/26/24 07:57 Red Blood Count 5.35 10^6/uL (4.36-5.78) 02/26/24 07:57 Hemoglobin 15.3 g/dL (13.5-17.5) 02/26/24 07:57 Hematocrit 46.2 % (40.0-50.0) 02/26/24 07:57 Platelet Count 192 10^3/uL (130-400) 02/26/24 07:57 Complete Metabolic Panel: Sodium 144 mmol/L (136-145) 02/26/24 07:57 Potassium 4.1 mmol/L (3.5-5.1) 02/26/24 07:57 Chloride 106 mmol/L (98-107) 02/26/24 07:57 Carbon Dioxide 30.0 mmol/L (21.0-32.0) 02/26/24 07:57 BUN 15 mg/dL (7-18) 02/26/24 07:57 Creatinine 1.2 mg/dL (0.70-1.30) 02/26/24 07:57 Est GFR (CKD-EPI 2020) 67.95 (mL/min/1.73m2) 02/26/24 07:57 Calcium 8.6 mg/dL (8.5-10.1) 02/26/24 07:57 Glucose 100 mg/dL (74-106) 02/26/24 07:57 Liver Function Panel: No Data to Display Coagulation Panel: No Data to Display Cardiac Panel: No Data to Display Arterial Blood Gas: No Data to Display Venous Blood Gas: No Data to Display Pancreas Panel: No Data to Display Thyroid Panel: No Data to Display Infectious Disease: No Data to Display Blood Cultures: No Data to Display Toxicology Panel: No Data to Display Anesthesia Assessment and Plan Anesthesia History Personal History: No History of Anesthesia Complications Family History: No Family History of Anesthesia Complications Exercise Tolerance Exercise Tolerance: Metabolic Equivalents>4 Cardiac & Pulmonary Exam Cardiac Exam: Normal S1/S2 Heart Sounds Pulmonary Exam: Clear Bilateral Breath Sounds Implantable Cardiac Device Does patient have a Pacemaker or an ICD?: No Airway Exam Known Difficult Airway: No Mallampati Class: 1 Mouth Opening: Normal (> 3cm) Thyromental Distance: Greater than 3 cm Neck Range of Motion: Full ROM Neck Circumference: Normal Teeth Condition: Normal Dentition ASA Classification ASA Score: ASA 2 Emergency Case?: No NPO Status NPO Status: NPO Clears >2 hours, Solids >8 hours Anesthesia Plan Resuscitation Status: Full Code Anesthesia Technique: Spinal Anesthesia Airway Planned: Natural Airway Pain Management: Surgeon and patient request nerve block Monitors Used: Standard Monitors Preoperative Comments:: 64 yo male for TKA. Sig PMHx: HTN (amlodipine, lisinopril), CAD (stents ~2016, denies ntg use, good work capacity), GERD (omeprazole), gout. never smoker, occ EtOH. Stress/MPI: Normal perfusion, EF 55%, no ischemia or infarction. Previous Anes: - colo, prop, natural airway, no issues.
[2024-03-04] VITALS (26 sets, daily range): BP systolic 100–162; BP diastolic 68–102; PULSE 54–74; RESP 8–19; TEMP 36.2–36.6; O2SAT 92–98; BMI 32.1
[2024-03-04] MEDS: Gabapentin 300 MG CAP PO (06:49)
[2024-03-04] MEDS: Acetaminophen 500 MG TAB 1000 MG PO (06:49)
[2024-03-04] MEDS: Celecoxib 200 MG CAP 400 MG PO (06:49)
[2024-03-04] MEDS: Normal Saline 500 ML 30 ML IV (07:00)
--- NOTE | 2024-03-04 07:14 | W.PM.DSUDISC ---
Date of service: 03/04/24 Discharge Plan Disposition Patient Disposition: Home Condition: Good Discharge Details Reason For Visit: Left knee DJD Attending Provider: Dario Roque Primary Care Provider: Adela Vincent Home Meds and New Rx's Prescriptions: New acetaminophen 500 mg tablet 1,000 mg PO Q8H PRN Qty: 90 0RF Rx Instructions: Take two tablets up to every 8 hours as needed for pain aspirin 81 mg tablet,delayed release (DR/EC) 81 mg PO BID 30 Days Qty: 60 0RF celecoxib [Celebrex] 200 mg capsule 200 mg PO BID PRNQty: 60 0RF Rx Instructions: Take one tablet twice daily for pain and inflammation docusate sodium [Colace] 100 mg capsule 100 mg PO BID Qty: 30 0RF dexamethasone 4 mg tablet 4 mg PO DAILY Qty: 2 0RF Rx Instructions: Take one tablet once daily for two days gabapentin 300 mg capsule 300 mg PO QHS Qty: 14 0RF Rx Instructions: Take one tablet at bedtime oxycodone 5 mg tablet 5 mg PO Q4H PRNQty: 18 0RF Rx Instructions: Take one tablet up to every 4 hours as needed for severe postoperative pain Continued tramadol 50 mg tablet 50 mg PO Q8H PRN (Reason: pain) Qty: 60 0RF loratadine 10 mg tablet 10 mg PO DAILY omeprazole 20 mg tablet,delayed release (DR/EC) 20 mg PO DAILY Qty: 90 3RF amlodipine 5 mg tablet 5 mg PO HS lisinopril 30 mg tablet 30 mg PO HS rosuvastatin 20 mg tablet 20 mg PO HS febuxostat 40 mg tablet 40 mg PO HS Discontinued aspirin 81 MG tablet,chewable 81 mg PO DAILY celecoxib [Celebrex] 200 mg capsule 200 mg PO BID Qty: 180 0RF Rx Instructions: take 1 tablet by mouth twice daily for pain/inflammation Discharge Instructions Additional Instructions: Total Knee Discharge Instructions Activity: The most important activity is to walk and to work on gentle motion (both flexion and extension). You should try to take short walks a few times a day. It is important that when resting you work on keeping the knee straight. Avoid putting a pillow behind the knee as this will encourage flexion. Work on range of motion exercises as provided by Physical Therapy. - Start outpatient physical therapy within 2 weeks. - You should wear the SADIA hose on both legs for 2 weeks. You may remove these at night. You may also use any compression sock in place of the SADIA hose. - Utilize [employer] to review exercises, see videos on exercises and obtain basic information pertaining to your surgery and your recovery. Dressing: Remove the Brennen wrap by 2 days after your surgery and put on the SADIA stocking given to you from the hospital. Keep the surgical dressing (underneath the BRENNEN wrap) in place for at least one week. After the first week it may be removed and replaced with light gauze and tape or nothing. The wound and dressing may get wet after 3 days but avoid soaking the dressing or otherwise it will need to be changed. Many people prefer covering the dressing with cling wrap (saran wrap) to minimize it from getting soaked. If it gets wet, just pat dry. If it starts to peel off then it will need to be changed. Medications: - You should take Tylenol and anti-inflammatory Celebrex as your primary pain control medications. If the Celebrex is too expensive or not covered, please call the office for another alternative (Advil/Ibuprofen or Naproxen/Aleve) - You have been prescribed a stronger pain medication Oxycodone for breakthrough pain, take as needed as prescribed. - You have take a stomach acid reduction agent Omeprazole at baseline - continue with this medication to help reduce stomach acid and reflux. - You have been prescribed Gabapentin to take at night for restlessness and nerve pain. - You will be taking Aspirin 81mg twice a day for DVT prevention unless instructed otherwise. - You have also been prescribed Decadron to take to control post-operative nausea and pain. You will start this tomorrow. - If you have constipation you should take Colace (which has been prescribed) or Miralax (which is available [id number]). It takes most people 3-4 days to have a bowel movement. Follow-up: 2 weeks If you have any acute concerns or questions, please do not hesitate to contact the office at [phone]. You may contact Dr. Roque with any questions after hours through the hospital at [phone] or on his cell phone at [phone]. Referrals: Dario Roque MD [ [facility]] - Equipment/Supplies: Walker Activity:: Elevate Remove Dressings/Wound Care:: Do Not Remove Shower/Bathe:: Cover Diet:: As Tolerated Discharge Orders Discharge Orders: Discharge Order (Routine); Ordered 03/04/24 Ordered By: Lili Ortiz
[2024-03-04] MEDS: ceFAZolin 2 GM/50 ML BAG IVPB (07:27)
--- NOTE | 2024-03-04 07:39 | ANES.NERVE_ITS ---
Nerve Block Single Injection Procedure Date and Time Date Performed: 03/04/24 Procedure Start: 07:08 Location Where Procedure Performed Procedure Location: Day Surgery Unit Reason Performed: Postoperative Analgesia Requesting Provider: Dario Roque Timeout Performed Timeout Performed: Yes Monitoring Used ECG, Blood Pressure and SpO2 Sterility Sterility: Hand Hygiene, Surgical Cap, Surgical Mask, Sterile Gloves and Chlorhexidine Sedation Given During Procedure Sedation Given (Indicate Dose Given): No Sedation given Patient Mental Status Patient Mental Status: Awake Nerve Block 1st Nerve Block: Laterality: Left Block Type: Adductor Canal Ultrasound Image Saved?: Yes Needle / Catheter Used: 100mm SonoPlex II Local Anesthetic Bolus (Indicate Dose Given): Lidocaine used for local infiltration of skin, Injected in 3-5ml increments after negative blood aspiration and Bupivacaine 0.25% Dose:: 10 mL Additives (Indicate Dose Given): None Ultrasound: Sterile probe cover and gel used Nerve Stimulator: Supplement to Ultrasound use and No twitch or parasth esia noted < 0.5 mA Paresthesia: None Procedure Tolerated: No Complications Procedure Outcome: Successful Performed By: Marlo Tomas Supervised By: Aguila Bradshaw
--- NOTE | 2024-03-04 08:46 | W.PM.OP ---
Operative Note Operative Note PRE-OP DIAGNOSIS: Left Knee Osteoarthritis POST-OP DIAGNOSIS: same PROCEDURE: Left Total Knee Replacement SURGEON: Dario Roque PSYCHOLOGIST RESEARCH ASSISTANT: Lili Ortiz ANESTHESIA TYPE: Spinal Refer to Anesthesia Record ESTIMATED BLOOD LOSS: 75 PATHOLOGY: none sent TOURNIQUET TIME: 0 COMPLICATIONS: None Patient was transported to: PACU Patient's condition: stable Implants: 1. Depuy Attune Cementless Cruciate Retaining Femoral Component, Size 8 2. Depuy Attune Cementless Fixed Bearing Tibial Component, Size 7 3. Depuy Attune 8x8mm CR/FB Poly 4. Depuy Attune Patellar Component, Size 38 Indications: I have seen Chris in clinic for symptoms of knee arthritis, confirmed with radiographic findings. He has exhausted nonoperative methods and was having significant limitations in daily function and desired better function and less pain. I discussed the technical details of a knee replacement. I explained the risks of the procedure to include, but not limited to, bleeding, infection, pain, stiffness, fracture, damage to nerves and vessels, damage to muscles and tendons, loosening, need for repeat procedure, blood clot and cardiopulmonary demise. Despite these risks, Chris elected to proceed. Findings: There was significant signs of arthritis throughout the medial compartment, particularly the femur with exposed bone. 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 Procedure Description: Chris was greeted in the preoperative holding area where the correct side was identified and marked. The consent was reviewed with the patient and signed. The history and physical was updated. All questions were answered. Preoperative medications were administered: Acetaminophen 1000mg, Celebrex 400mg, and Gabapentin 300mg. An adductor canal block was then administered by the anesthesia team in the DSU. He was taken back to the operating room. A spinal anesthestic was then administered. The patient was placed into the supine position on the operating room table. Posts were placed for positioning during the procedure. All bony prominences were well padded. Prophylactic antibiotics in the form of Cefazolin were administered. 1g of Tranxemic Acid was given intravenously within 30 minutes of incision. The left leg was then prepped with Chloraprep and draped in a standard fashion with impervious stockinette. A second prep with Chloraprep was performed prior to application of Iodine impregnated skin protection. A timeout to confirm correct identity, side and site, procedure, allergies, anesthesia, and medical concerns was performed. With the knee in some flexion, a midline incision was made overlying the knee. Full thickness skin flaps were raised once the extensor mechanism was encountered. These were raised medially and laterally. Any bleeding was controlled with electrocautery. Once the extensor mechanism was fully exposed, a medial parapatellar arthrotomy was performed in a flexed position. All bleeding from the arthrotomy and the geniculate arteries was coagulated. A medial subperiosteal peel was performed with electrocautery to the midcoronal plane. Due to the significant varus deformity the entire medial tibial plateau was exposed. The fat pad was removed while keeping the patellar tendon protected. The anterior distal femur synovium was removed for later visualization. The ACL and PCL were resected and the anterior horn of the lateral meniscus was transected. The knee was then flexed with the patella everted. Large osteophytes from the tibia were removed. Using a step drill, and based on preoperative templating, the femoral canal was entered. This was done with a step drill without any difficulty. The intramedullary distal femoral cut guide was inserted, set to a 6 degree valgus cut and 9mm cut thickness. The distal femoral cut guide was then held in position and pinned. With the soft tissues protected, the distal cut was performed. This was passed over a few times to ensure a planar cut. I then turned attention to the tibia. The extramedullary guide was placed onto the leg. The distal aspect was slid medial to adjust for position of center of ankle and stay in line with shaft of the tibia. Approximately 3-5 degrees of posterior slope was kept in the proximal cutting guide. The center of the guide was aligned with the PCL. The stylus was used to assess cut thickness. The medial side, most involved side, was set for a 4mm cut. This was then held in position and pinned into place with 2 additional pins and a cross pin for stability. The medial and lateral collateral ligaments were protected and the cut was performed. With this completed, it was assessed and noted to be of appropriate dimensions. The guide was removed. A spacer block was inserted and the knee was brought into extension. The 7mm spacer block provided full extension, without hyperextension and with stability of both the medial and lateral collateral ligaments was assessed. The pins from the femur and the tibia were then removed. The distal femur was then sized. The anterior stylus was placed onto the lateral ridge of the anterior femur. This indicated a size 8 femur. The external rotation of the guide was adjusted to 0 degrees to match the epicondylar axis, perpendicular to [place]?s line. The 4-in-1 cutting guide was the placed. The posterior medial femur cut was evaluated and appeared of good thickness. The spacer block was inserted underneath the cutting guide and stability was confirmed in 90 degrees of flexion. An rinku wing was used to confirm appropriate position of the anterior cut to avoid notching. This cutting guide was ensured to be flush on the cut surface and then pinned into place with headed pins. While protecting the soft tissues, quad tendon, and collateral ligaments, the anterior and posterior cuts were performed with a saw. The central two pins were removed and the posterior and anterior chamfers were cut next. The notch-cutting guide was placed. This was pinned to lateralize the femoral component as much as possible while keeping it flush on the cut surface. This was then pinned into position. A reciprocating saw was used to make the notch cut. A rasp smoothed the cut surfaces. The medial and lateral menisci were removed. A trial femoral component was then inserted, impacted down to the cut surfaces, and the lug holes were drilled. A provisional trial tibial component was placed and the knee was brought through range of motion. The polyethylene was trialed until there was good flexion and extension with excellent stability to the medial and lateral collaterals. There was some gap in the lateral compartment extension although without any instability of the medial side of the knee from extension through mid flexion and deep flexion. The patella was tracking without thumbs. A size 8mm polyethylene component provided the best range of motion and stability with less than 2mm gapping with medial and lateral stress and full extension without significant hyperextension. The tibial cut surface was fully exposed. The tibia was then sized as a 7. The tibia had been previously marked during trialing to correspond to the center of the tibial component to help with rotation. The trial was aligned to this lauren, approximately rotated to the medial 1/3rd of the tibial tubercle. The trial was pinned into place. The tibia was prepared with a reamer and a keel punch and lug holes. The knee was then brought into extension and the patella was measured as 24mm. Using the patellar clamp and cut guide, this was resected to a flat surface with at least 13mm of thickness remaining. The size 38 patella fit the best. This was oriented and then clamped into position. The lugs were drilled. The trial components were removed. The final components were opened on the back table. The periosteal and capsular tissues, especially posteriorly, around the knee were then systematically injected with a periarticular cocktail consisting of 246mg of Ropivacaine, 0.5mg of Epinephrine, 0.08mg of Clonidine, and 30mg of Ketorolac, diluted to 100cc. On the back table, with the implants opened, the cement was mixed. One batch of high viscosity cement was prepared with vacuum assistance. After the cement was ready a small amount was placed on the cut surface of the patella and the patellar button was clamped into position and held. While the cement was hardening, the cementless knee components were placed. Starting with the tibial component, the tibia was subluxed anteriorly and the lug holes of the component were lined up. The tibia was then impacted with an impactor and mallet until the tibial component was in contact with the tibia. The final polyethylene component was inserted. Then, the femoral component was inserted. The lug holes were aligned and the component was impacted into position. The knee was irrigated with Surgiphor Betadine solution. This was allowed to sit in the knee for 3 minutes and then it was irrigated out with saline. After the cement had finally cured, approximately 15min, the clamp was removed from the patella and the knee was taken through range of motion. The patella was tracking with a no-thumbs technique. The capsule was then reapproximated with a No. 1 Vicryl at multiple locations. The capsule was finally closed with a No. 2 Stratafix, barbed suture. The second dosing of 1g TXA was started. Deep tissues were then reapproximated with 0 Vicryl and 2-0 Vicryl. The skin was closed with a running 3-0 Monocryl in a subcuticular fashion. This was reinforced with skin glue. A Mepilex silver dressing was applied along with a [id number] SHANNEN wrap. A CryoCuff was applied. Chris was transferred to the hospital bed without difficulty an suffering no apparent complication. Chris has a good prognosis. Physical therapy will start today and without restrictions, weight-bearing as tolerated. Aspirin 81mg BID will be used for DVT prophylaxis. Date of Procedure: 03/04/24
[2024-03-04] MEDS: HYDROmorphone 1 MG/ML SYR 0.5 MG IVP (09:25)
[2024-03-04] MEDS: fentaNYL 100 MCG/2 ML VIAL IVP (09:40)
--- NOTE | 2024-03-04 09:57 | W.ANESPOSTOP ---
Postoperative Evaluation Date, Time and Location Date Performed: 03/04/24 Time Performed: 09:57 Patient Location: PACU Vital Signs Most Recent Imported Vital Signs: Most Recent Vital Signs Temp Pulse Resp BP Pulse Ox 36.6 C 74 19 162/102 H 96 03/04/24 09:50 03/04/24 07:08 03/04/24 07:08 03/04/24 07:08 03/04/24 07:08 Pain Score Most Recent Pain Score: Most Recent Pain Score Pain Level 7 03/04/24 09:50 Assessment Mental Status: Awake (Alert & Oriented to Patient Baseline) Airway and Respiratory Function: Patent airway with normal (patient baseline) respiratory exam Cardiovascular Function: Hemodynamically Stable Hydration Status: Adequately Hydrated Nausea & Vomiting: No Nausea or Vomiting Pain: Pain is tolerable per patient Peripheral Nerve Block: Regional nerve block not resolved at time of post operative discharge
[2024-03-04] MEDS: oxyCODONE 5 MG TAB PO (10:19)
--- NOTE | 2024-03-04 13:07 | PT.INIE ---
PT Notes Visit Reasons: Left knee DJD Physical Therapy Day Surgery Initial Evaluation Date: 03/04/2024 Referring Doctor: Dr. Roque PT Orders: PT CONSULT: Status post Ortho surgery Precautions: Activity as tolerated, WBAT left LE,TEDs x 2 weeks Patient Profile/Admitting Diagnosis: Patient is 64-year-old male presenting status post elective left TKA by Dr. Roque on 03/04/2024 under spinal anesthesia. Postop uncomplicated PMHX: Chondromalacia left knee, gout, hyperlipidemia, GERD, essential hypertension, rotator cuff syndrome Social History/Home Situation: Patient resides in a two-story home with 4 steps to enter with 1 rail on the right. 13 steps to second-floor bedroom with rail on left. Patient reports she will be staying on first floor initially. Patient independent ADLs ambulation, household tasks, yard work. 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 His will be able to assist with meal preparation and transportation Equipment Owned/DME: FWW and cane Subjective: Patient reports his pain is in his quad not in the knee joint at this time he states Dr. Roque told him that is how it would be. Patient motivated to participate in evaluation Objective: General Observation: Presents semireclined on stretcher Cryo/Cuff to left knee and present at bedside. Mental Status: Alert and oriented x 4 cooperative motivated Pain: Left knee 2/10 ROM: Right Lower Extremity: Within normal limits Left Lower Extremity: Within normal limits except knee 5-91 Strength: Bilateral upper extremity: 5/5 Right Lower Extremity: 5/5 Left Lower Extremity:Hip flexion: 3 -/5; hip abduction: 3 -/5; hip extension: 3 -/5; knee extension: 3 -/5; knee flexion: 2+/5 ankle DF: 3/5 ; ankle PF: 3/5. Patient demonstrates slight quad lag for SLR in shortened range. Patient requires cues to perform quad set without compensation from hamstring and glutes. Sensation: Intact Bed Mobility/Transfers: Supine to sit independent Sit to stand independent Stand to sit SBA Bed to chair SBA with FWW Gait: Ambulated 150 feet with FWW SBA on level surfaces including turns patient demonstrates decreased left knee flexion during swing phase foot flat at weight acceptance on left hand vaulting to clear left lower extremity. Stairs: 4 steps with 1 rail SBA with cues for sequencing Balance: Static Sitting: Normal Dynamic Sitting: Good plus Static Standing: Good Dynamic Standing: Fair plus Special Tests: Mobility Limitations Standardized Measure [facility] 6 clicks Basic Mobility Inpatient Short Form: Raw Score: 23 CMS Score: 11.20% Informed Consent/Education: Patient instructed in purpose of PT consult. Packet containing TKA exercise protocol has been given to patient. Education and training on initial set of exercises that can be done at home have been completed with patient. Patient education on proper stair training technique completed. Patient instructed in car transfer technique. Assessment: Patient is a 64-year-old male presents with clinical signs and symptoms consistent with current/admitting diagnoses that have resulted to mobility limitations, gait instability, generalized weakness, and impairment of motor control as demonstrated by the following impairment level findings: 1. Decreased strength to left knee major muscle groups 2. Impaired standing balance 3. Limitation of joint range of motion in left knee 4. Impaired functional activity tolerance and standing 5. Pain left knee Impairments are contributing to the following functional limitations: 1. Inability to safely ambulate without assistive device 2. Increase completion time for mobility ADL performance 3. Increased fall risk 4. Decline in ability to perform stairs safely independently Patient is assessed as a low complexity based on the following: History: 64-year-old male with impairment level findings, functional limitations, and past medical history as indicated above Examination: Demonstrable impairment in strength, balance, and mobility level with underlying impairments and functional limitations as documented above Presentation: Stable Decision Making: Low Goals: N/A. Plan of Care/Treatment Plan: PT evaluation and treat as indicated DISCHARGE RECOMMENDATIONS: Home with outpatient PT as scheduled TREATMENT CODE/TIME: 97298, [id number] Thank you for the opportunity to participate in the care of this patient. Hattie Galaviz PT Please sign an return this page within 30 days if you agree with the above POC. Thank you! Physician Signature Date [facility]
== END 2024-03-04 13:35 | disposition home or self-care (01) ==
PROVIDERS: PCP Family Medicine; Visit Provider Student in an Organized Health Care Education/Training Program
PROC: (CPT 27447; principal; 2024-03-04 07:30)
DX: M17.12 Unilateral primary osteoarthritis, left knee (principal); G89.18 Other acute postprocedural pain; M25.562 Pain in left knee
CPT/HCPCS: 27447; 64447; 97161; 97530; C1776; J0665; J0690; J1171; J2250; J2371; J2401; J2704; J3010

== ENCOUNTER 2024-03-17 15:44 | Outpatient (CLI) | payer OTHER, SELFPAY ==
--- NOTE | 2024-03-17 13:44 | DI.RAD_ITS ---
Exam(s) XR KNEE LT 1V XR STANDING ALIGNMENT EXAM: XR STANDING ALIGNMENT CLINICAL HISTORY: 1ST POST OP S/P L TKA. TECHNIQUE: 2D digital imaging was performed. Standing AP views were performed from the pelvis throu gh the ankles. Lateral view left knee COMPARISON: CR XR STANDING ALIGNMENT from 02/04/2024 CR XR KNEE LT 1V from 03/17/2024 FINDINGS: BONES: No acute fracture is present. No bony destructive lesion is seen. Leg length discrepancy: No significant overall leg length discrepancy. JOINTS: Knees: Status post placement of a left total knee prosthesis. The alignment is satisfactory. The right knee shows minimal degenerative changes. The ankle joints are unremarkable. The hip joints are unremarkable. SOFT TISSUE: Soft tissue swelling at the anterior left knee. IMPRESSION: Status post placement of left knee prosthesis. No significant leg length discrepancy. DATA REPOSITORY: RADIATION DOSE DELIVERED:
== END 2024-03-17 15:45 | disposition home or self-care (01) ==
LOC: DIORS 15:45
PROVIDERS: PCP Family Medicine; Visit Provider Physician Assistant
DX: Z96.652 Presence of left artificial knee joint (principal); Z47.1 Aftercare following joint replacement surgery
CPT/HCPCS: 73560; 77073

== ENCOUNTER 2025-03-09 15:53 | Outpatient (CLI) | payer OTHER, SELFPAY ==
--- NOTE | 2025-03-09 13:15 | DI.RAD_ITS ---
Exam(s) XR KNEE LT 2V AP,LAT EXAM: XR KNEE LT 2V AP,LAT INDICATION: ANNUAL F/U L TKA. COMPARISON: CR XR STANDING ALIGNMENT from 03/17/2024 CR XR KNEE LT 1V from 03/17/2024 TECHNIQUE: 2D digital imaging was performed. Two views. FINDINGS: Stable alignment of total knee prosthesis. No abnormal surrounding lucencies. DATA REPOSITORY: RADIATION DOSE DELIVERED:
== END 2025-03-09 15:54 | disposition home or self-care (01) ==
LOC: DIORS 15:53
PROVIDERS: PCP Family Medicine; Visit Provider Student in an Organized Health Care Education/Training Program
DX: Z96.652 Presence of left artificial knee joint (principal)
CPT/HCPCS: 73560